=== PATIENT | female | born 1995 | race Two or more races ===

== ENCOUNTER 2018-07-07 11:19 | Emergency (ER) | payer OTHER ==
[2018-07-07 11:35] VITALS: BMI 23.6
[2018-07-07] MEDS ORDERED: SODIUM CHLORIDE 1,000 ML IV ONE (12:32)
[2018-07-07] MEDS ORDERED: ONDANSETRON 4 MG/2 ML VIAL IVPB ONE (12:32)
--- NOTE | 2018-07-07 12:32 | PDOC ---
History of Present Illness - General History Source: Patient Exam Limitations: No Limitations - History of Present Illness Travel History: Yes Initial Comments: 07/07/18 12:50 The patient is a 22 year old female, with no significant past medical history, who presents to the emergency department with diarrhea, nausea, abdominal pain and abdominal bloating since Wednesday. She states she saw Dr. Espino in the clinic yesterday who prescribed some antibiotic. She states she received a prescription for blood work by Dr. Espino, but denies having the blood work done yet. She states she went for a routine visit with her cobbler upper today who informed the patient she looked unwell and advised her to come to the ED. She reports the diarrhea is watery and more active at night. She reports 8-10 episodes since Wednesday. She states any fluid or food intake is shortly followed by a watery bowel movement. She reports diffuse abdominal pain associated with her diarrhea. She also reports feeling feverish. She denies ever having GI problems in the past. She states she went to [facility] on vacation but denies drinking from [place] or [place]. [place] [facility]. The patient denies chest pain, shortness of breath, headache and dizziness. The patient denies fchills, vomit, and constipation. The patient denies dysuria, frequency, urgency and hematuria. Allergies: NKDA Past surgical history: none reported Social history: denies toxic habits <Meri Villasenor - Last Filed: 07/07/18 12:50> <Viral Correa - Last Filed: 07/07/18 20:28> - General Chief Complaint: Diarrhea Stated Complaint: DEHYDRATED Time Seen by Provider: 07/07/18 12:02 Past History <Meri Villasenor - Last Filed: 07/07/18 12:50> - Past Medical History COPD: No - Suicide/Smoking/Psychosocial Hx Smoking History: Never smoked <Viral Correa - Last Filed: 07/07/18 20:28> - Past Medical History Allergies/Adverse Reactions: Allergies Allergy/AdvReac Type Severity Reaction Status Date / Time codeine Allergy Difficulty Verified 07/07/18 11:27 Breathing Home Medications: Ambulatory Orders NK [No Known Home Medication] 07/07/18 Review of Systems - Review of Systems Able to Perform ROS?: Yes Comments:: 07/07/18 12:51 CONSTITUTIONAL: (+) Fever, No reported:Chills, Diaphoresis, Generalized Weakness, Malaise, Loss of Appetite HEENT: No reported: Rhinorrhea, Nasal Congestion, Throat Pain, Throat Swelling, Difficulty Swallowing, Mouth Swelling, Ear Pain, Eye Pain, Visual Changes CARDIOVASCULAR: No reported: Chest Pain, Syncope, Palpitations, Irregular Heart Rate, Lightheadedness, Peripheral Edema RESPIRATORY: No reported: Cough, Shortness of Breath, SOB with Exertion, Orthopnea, Wheezing , Stridor, Hemoptysis GASTROINTESTINAL: (+) nausea, abdominal pain, diarrhea, bloating. No reported: Vomiting, Constipation, Melena, Hematochezia GENITOURINARY: No reported: Dysuria, Frequency, Urgency, Hesitancy, Flank Pain, Genital Pain MUSCULOSKELETAL: No reported: Myalgia, Arthralgia, Joint Swelling, Back pain, Neck Pain SKIN: No reported: Rash, Itching, Pallor HEMEATOLOGIC/IMMUNOLOGIC: No reported: Easy Bleeding, Easy Bruising, Lymphadenopathy, Frequent infections ENDOCRINE: No reported: Unexplained Weight Gain, Unexplained Weight Loss, Heat Intolerance , Cold Intolerance NEUROLOGIC: No reported: Headache, Focal Weakness, Paresthesias, Vertigo, Lightheadedness, Unsteady Gait, Seizure, Mental Status Changes, Incontinence PSYCHIATRIC: No reported: Anxiety, Depression <Meri Villasenor - Last Filed: 07/07/18 12:50> *Physical Exam - Vital Signs Last Vital Signs Temp Pulse Resp BP Pulse Ox 101 F H 115 H 16 124/66 98 07/07/18 11:29 07/07/18 11:29 07/07/18 11:29 07/07/18 11:29 07/07/18 11:29 - Physical Exam Comments: 07/07/18 12:51 GENERAL: The patient is awake, alert, and fully oriented, Nontoxic - in no acute distress. HEAD: Normocephalic, atraumatic. EYES: extraocular movements intact, sclera anicteric, conjunctiva clear. ENT: (+) Dry mucous membranes.Normal voice, NECK: Normal range of motion, supple LUNGS: Breath sounds equal, clear to auscultation bilaterally. No wheezes, no rhonchi, no rales. HEART: (+) slightly tachycardic. Regular rhythm, without murmur, rub or gallop. ABDOMEN: (+) hyperactive bowel sounds. Soft, nontender, No guarding, no rebound.No CVA tenderness EXTREMITIES: Normal range of motion, no edema. No cyanosis. No erythema, or tenderness. NEUROLOGICAL: No facial assymetry, Normal speech, PSYCH: Normal mood, normal affect. SKIN: (+) hot to touch. Dry, normal turgor, <Meri Villasenor - Last Filed: 07/07/18 12:50> - Vital Signs Last Vital Signs Temp Pulse Resp BP Pulse Ox 101 F H 115 H 16 124/66 98 07/07/18 11:29 07/07/18 11:29 07/07/18 11:29 07/07/18 11:29 07/07/18 11:29 <Viral Correa - Last Filed: 07/07/18 20:28> ED Treatment Course - LABORATORY CBC & Chemistry Diagram: 07/07/18 12:34 07/07/18 12:34 <Viral Correa - Last Filed: 07/07/18 20:28> Medical Decision Making - Medical Decision Making 07/07/18 12:29 22y F no pmhx presents with complaintof nausea, diarrhea, and bloating. pt was started on abx by PMD (doesnt recall name, but daily for 7 days -> levaquin). pt endorses watery diarrhea x 8-10x day, unable to toleate oral intake - will vomiting/diarrhea after eating/drinking anything. +associated cramping abdominal pain. recent travel to [place]. denies cp, sob, dysuria. hyperactive bowel sounds but no abd tenderness, nor ebound/guarding ddx includes gastroneteritis, travelers diarrhea, colitis will ck labs, stool cultures fluids, tylenol padilla lerasses 07/07/18 15:21 pts labs reviewed unremarkble pt feeling improved will recheck vitals will PO challenge 07/07/18 16:21 repeat vitals normal pt tolerating oral intake abd reassesed and is soft nontender will dc with pmd fu return precautions ewre discusse d <Viral Correa - Last Filed: 07/07/18 20:28> *DC/Admit/Observation/Transfer - Attestations Scribe Attestion: 07/07/18 12:51 Documentation prepared by Meri Villasenor, acting as medical assistant supervisor for Viral Correa MD <Meri Villasenro - Last Filed: 07/07/18 12:50> - Discharge Dispostion Decision to Admit order: No <Viral Correa - Last Filed: 07/07/18 20:28> Diagnosis at time of Disposition: Gastroenteritis - Discharge Dispostion Disposition: HOME Condition at time of disposition: Improved - Referrals Referrals: Alpa Luo MD [Primary Care Provider] - - Patient Instructions Printed Discharge Instructions: DI for Viral Gastroenteritis -- Adult Additional Instructions: Return to the emergency department immediately with ANY new, persistent or worsening symptoms including worsening abdominal pain, fevers, inability to tolerate oral intake, chest pain, shortness of breath or any other concerns. Stay well hydrated. You MUST call and follow up with your doctor tomorrow. Your emergency department visit is not complete without a followup with your doctor for reevaluation. Please make sure your doctor reviews the results of your emergency evaluation. Print Language: ROMANSH - Post Discharge Activity
[2018-07-07] MEDS ORDERED: METOCLOPRAMIDE HCL INJECTION 10 MG/2 ML VIAL IM ONE (12:38)
[2018-07-07] MEDS ORDERED: ACETAMINOPHEN 325 MG TABLET (FP) PO ONE (12:40)
[2018-07-07] MEDS ORDERED: METOCLOPRAMIDE HCL INJECTION 10 MG/2 ML VIAL ONE (12:45)
[2018-07-07] MEDS ORDERED: ACETAMINOPHEN INJECTION 100 ML IVPB ONE (12:45)
[2018-07-07] MEDS ORDERED: ONDANSETRON 4 MG/2 ML VIAL ONE (12:45)
[2018-07-07 13:26] LABS: BASO % 0.1 % (0-2.0); EOS % 0.1 % (0-4.5); HEMOGLOBIN 12.4 GM/dL (10.7-15.3); LYMPH % 7.1 % (8-40); MCH 31.9 pg (25.7-33.7); MCHC 34.4 g/dl (32.0-36.0); MEAN CELL VOLUME 92.7 fl (80-96); MEAN PLT VOLUME 7.5 fl (7.5-11.1); NEUT % 86.7 % (42.8-82.8); PLATELET COUNT 318 K/MM3 (134-434); RBC 3.88 M/mm3 (3.60-5.2); WHITE BLOOD COUNT 7.2 K/mm3 (4.0-10.0)
[2018-07-07 13:41] LABS: HCG,QUALITATIVE URINE NEGATIVE
[2018-07-07 13:48] LABS: ALBUMIN 3.4 g/dl (3.4-5.0); ANION GAP 10 MMOL/L (8-16); BLOOD UREA NITROGEN 8 mg/dL (7-18); CALCIUM 9.2 mg/dL (8.5-10.1); CHLORIDE 105 mmol/L (98-107); CO2 24 mmol/L (21-32); CREATININE 0.6 mg/dL (0.55-1.02); GLUCOSE,RANDOM 81 mg/dL (74-106); LIPASE 97 U/L (73-393); POTASSIUM 4.1 mmol/L (3.5-5.1); SGOT/AST 14 U/L (15-37); SGPT/ALT 16 U/L (12-78); SODIUM 139 mmol/L (136-145)
[2018-07-07 13:50] LABS: ALK PHOS 45 U/L (45-117); BILIRUBIN,TOTAL 0.5 mg/dL (0.2-1.0); TOT PROT 7.1 g/dl (6.4-8.2)
[2018-07-07] MEDS ORDERED: METOCLOPRAMIDE HCL INJECTION 10 MG/2 ML VIAL IVPUSH ONE (14:00)
[2018-07-07] MEDS ORDERED: ACETAMINOPHEN 1000 MG/100 ML VIAL (NON FORMULARY) IVPB ONE (14:00)
[2018-07-07 14:16] LABS: URINE APPEARANCE SLCLOUDY; URINE BILIRUBIN NEGATIVE (<2.0 mg/dL); URINE COLOR YELLOW; URINE GLUCOSE (UA) NEGATIVE (NEGATIVE); URINE KETONE NEGATIVE (NEGATIVE); URINE LEUK ESTERASE NEGATIVE (NEGATIVE); URINE NITRITE NEGATIVE (NEGATIVE); URINE PROTEIN NEGATIVE (NEGATIVE); URINE UROBILINOGEN NEGATIVE mg/dL (0.2-1.0)
[2018-07-07 16:10] VITALS: BP 131/64; PULSE 85; TEMP 98
== END 2018-07-07 17:06 | disposition home or self-care (01) ==
LOC: JER 11:19
PROC: 3E033GC Introduction of Other Therapeutic Substance into Peripheral Vein, Percutaneous Approach (ICD-10-PCS; principal; 2018-07-07)
PROC: 3E033GC Introduction of Other Therapeutic Substance into Peripheral Vein, Percutaneous Approach (ICD-10-PCS; 2018-07-07)
PROC: 3E033NZ Introduction of Analgesics, Hypnotics, Sedatives into Peripheral Vein, Percutaneous Approach (ICD-10-PCS; 2018-07-07)
DX: K52.9 Noninfective gastroenteritis and colitis, unspecified (principal)
CPT/HCPCS: 36415; 80053; 81003; 83690; 84703; 85025; 87045; 87046; 87177; 87209; 99282-25; J0131; J7030